=== PATIENT | female | born 1930 | race Caucasian/White ===

== ENCOUNTER 2017-08-16 09:34 | Day surgery (SDC) | payer OTHER ==
[2017-08-16] MEDS ORDERED: TETRACAINE 0.5% OPHTH 1 DOSE AFFEYE ONE ×4 (09:45→13:24)
[2017-08-16] MEDS ORDERED: VIGAMOX 0.5% OPHTH 1 DOSE AFFEYE ONE ×5 (09:50→13:35)
[2017-08-16] MEDS ORDERED: NS 500 ML IV 500 ML IV ONE (09:52)
[2017-08-16] MEDS ORDERED: PROLENSA OPHTH 1 DOSE AFFEYE ONE (10:01)
[2017-08-16] MEDS ORDERED: ALPHAGAN-P OPHTH 1 DOSE AFFEYE ONE (10:02)
[2017-08-16] MEDS ORDERED: CYCLOGYL 1% OPHTH 1 DOSE OP ONE ×3 (10:03→10:05)
[2017-08-16] MEDS ORDERED: MYDRIACIL OPHTH 1 DOSE AFFEYE ONE ×3 (10:03→10:05)
[2017-08-16] MEDS ORDERED: AK-DILATE 2.5% OPHTH 1 DOSE OP ONE ×3 (10:03→10:05)
[2017-08-16] MEDS ORDERED: BETADINE OPHTH SOLN 5% EACHEYE ONE (13:05)
[2017-08-16] MEDS ORDERED: ADRENALINE CHL INJ IJ ONE ×2 (13:18→13:24)
[2017-08-16] MEDS ORDERED: XYLOCAINE-MPF 1% IJ ONE ×2 (13:18→13:24)
[2017-08-16] MEDS ORDERED: DUOVISC IO ONE ×2 (13:18→13:24)
[2017-08-16] MEDS ORDERED: BSS OPHTH (PLAIN) 500 ML with VANCOMYCIN HCL 500 MG VIAL 25 MG, ADRENALINE CHL INJ 1 MG IR ONE ×6 (13:19)
[2017-08-16 16:40] VITALS: BP 180/72
== END 2017-08-16 14:00 | disposition home or self-care (01) ==
LOC: SURG1 09:34
PROVIDERS: ATTEND Ophthalmology
PROC: 08DK3ZZ Extraction of Left Lens, Percutaneous Approach (ICD-10-PCS; principal; 2017-08-16 15:15)
PROC: 08RK3JZ Replacement of Left Lens with Synthetic Substitute, Percutaneous Approach (ICD-10-PCS; principal; 2017-08-16 15:15)
DX: H25.12 Age-related nuclear cataract, left eye (principal); H25.012 Cortical age-related cataract, left eye
CPT/HCPCS: 99100; A4217; J0170; J3370

== ENCOUNTER 2017-09-06 07:05 | Day surgery (SDC) | payer OTHER ==
[~2017-09-06 07:05] MED LIST: NS 500 ML IV 500 ML IV ONE
[2017-09-06] MEDS ORDERED: TETRACAINE 0.5% OPHTH 1 DOSE AFFEYE ONE ×5 (07:20→09:38)
[2017-09-06] MEDS ORDERED: VIGAMOX 0.5% OPHTH 1 DOSE AFFEYE ONE ×5 (07:21→09:51)
[2017-09-06] MEDS ORDERED: PROLENSA OPHTH 1 DOSE AFFEYE ONE (07:32)
[2017-09-06] MEDS ORDERED: ALPHAGAN-P OPHTH 1 DOSE AFFEYE ONE (07:33)
[2017-09-06] MEDS ORDERED: AK-DILATE 2.5% OPHTH 1 DOSE OP ONE ×3 (07:34→07:36)
[2017-09-06] MEDS ORDERED: CYCLOGYL 1% OPHTH 1 DOSE OP ONE ×3 (07:34→07:36)
[2017-09-06] MEDS ORDERED: MYDRIACIL OPHTH 1 DOSE AFFEYE ONE ×3 (07:34→07:36)
[2017-09-06] MEDS ORDERED: BETADINE OPHTH SOLN 5% EACHEYE ONE ×2 (08:55→09:10)
[2017-09-06] MEDS ORDERED: XYLOCAINE-MPF 1% IJ ONE ×2 (08:56→09:38)
[2017-09-06] MEDS ORDERED: ADRENALINE CHL INJ IJ ONE ×2 (08:56→09:38)
[2017-09-06] MEDS ORDERED: BSS OPHTH (PLAIN) 500 ML with VANCOMYCIN HCL 500 MG VIAL 25 MG, ADRENALINE CHL INJ 1 MG IR ONE ×6 (08:57)
[2017-09-06] MEDS ORDERED: DUOVISC IO ONE ×2 (08:57→09:38)
[2017-09-06 10:26] VITALS: BP 186/81
[2017-09-06] MEDS ORDERED: DIPRIVAN VIAL ONE (15:35)
== END 2017-09-06 10:11 | disposition home or self-care (01) ==
LOC: SURG1 07:05 → EDBD 07:05 → SURG1 10:11
PROVIDERS: ATTEND Ophthalmology
PROC: 08RJ3JZ Replacement of Right Lens with Synthetic Substitute, Percutaneous Approach (ICD-10-PCS; principal; 2017-09-06 08:15)
PROC: 08DJ3ZZ Extraction of Right Lens, Percutaneous Approach (ICD-10-PCS; principal; 2017-09-06 08:15)
DX: H25.11 Age-related nuclear cataract, right eye (principal)
CPT/HCPCS: 99100; A4217; J0170; J3370; J3490